=== PATIENT | female | born 1950 | race Caucasian/White ===

== ENCOUNTER 2018-01-12 20:14 | Emergency (ER) | payer OTHER ==
[~2018-01-12] VITALS: Ht 162.6 cm; Wt 92.4 kg
[2018-01-12 20:15] VITALS: TEMP 36.6; Ht 162.6 cm; Wt 92.4 kg
[2018-01-12] MEDS ORDERED: SODIUM CHLORIDE 0.9% 1000ML 1,000 ML IV STA ×2 (20:26)
[2018-01-12] MEDS ORDERED: ONDANSETRON INJ 2 MG/ML 2 ML VIAL IV STA (20:26)
--- NOTE | 2018-01-12 21:12 | EMERGENCY ROOM VISIT NOTE ---
History Report prepared by Bret: Kyara Jack Under the Supervision of: Dr. Yasir Del Angel D.O. First contact with patient: 20:17 Chief Complaint: SYNCOPE Stated Complaint: Syncope, dehydrated History of Present Illness The patient is a 67 year old female who presents to the Emergency Room with complaints of an episode of syncope occurring prior to arrival. The patient states that she was at the [employer] and sat down to listen to music. She states that at that time she noticed she felt "weird" and sorta dizzy. She states that everything looked blurry so she put her glasses on. She states that she started feeling nauseous. She states that at that time she told her that she felt like she was going to pass out. She states that the next thing she knew she woke up soaked in sweat and her was telling her she had passed out. Per nursing staff, the patient's stated that she was out for roughly 10 seconds. She notes that she tends to be reactive to heat. The patient complains of feeling weak. The patient denies chest pain, shortness of breath, vomiting, cough, runny nose, recent travel, recent surgeries, this ever happening before, a history of CAD, and a history of blood clots. Source of History: patient, nursing staff Onset: prior to arrival Quality: other (syncope) Timing: other (episode) Modifying Factors (Worsening): other (heat) Associated Symptoms: + diaphoresis, + nausea, + weakness, No cough, No chest pain, No SOB, No vomiting Note: The patient complains of dizziness and blurry vision. The patient denies runny nose, recent travel, recent surgeries, and this ever happening before. Review of Systems See HPI for pertinent positives & negatives. A total of 10 systems reviewed and were otherwise negative. Past Medical & Surgical Medical Problems: (1) Diabetes (2) HTN (hypertension) (3) Hyperlipidemia Family History Patient reports no known family medical history. Social History Smoking Status: Never Smoker Alcohol Use: none Marital Status: Housing Status: lives with significant other Occupation Status: retired Current/Historical Medications Scheduled Amlodipine (Norvasc), 5 MG PO DAILY Atorvastatin (Lipitor), 20 MG PO QPM Calcium Carbonate-Vitamin D W/ (Caltrate 600 Plus), 1 TAB PO BID Glipizide (Glucotrol), 10 MG PO BID Hctz/Losartan (Hyzaar 25MG/100MG), 1 TAB PO DAILY Metformin Hcl (Glucophage), 1,000 MG PO BID Metoprolol Succ (Toprol Xl) (Toprol-Xl), 50 MG PO DAILY Omeprazole (Prilosec), 20 MG PO DAILY Sitagliptin Phosphate (Januvia), 100 MG PO DAILY Scheduled PRN Baclofen (Lioresal), 10 MG PO TID PRN for Muscle Spasms Naproxen (Naprosyn), 500 MG PO BID PRN for Pain Allergies Uncoded Allergies: TRULICITY (Adverse Reaction, Severe, GI SYMPTOMS, 01/12/18) Physical Exam Vital Signs Date Time Temp Pulse Resp B/P (MAP) Pulse Ox O2 Delivery O2 Flow Rate FiO2 01/12/18 22:31 72 19 138/60 97 Room Air 01/12/18 22:01 72 17 155/70 97 Room Air 01/12/18 21:31 73 18 134/75 97 Room Air 01/12/18 21:02 79 20 139/59 98 Room Air 01/12/18 20:44 70 18 155/62 97 Room Air 68 150/58 78 154/64 01/12/18 20:31 68 19 122/61 99 Room Air 01/12/18 20:15 36.6 74 22 177/59 100 Room Air 01/12/18 20:15 Room Air Physical Exam GENERAL: Sitting up in bed, alert, well appearing, well nourished, no distress, non-toxic EYE EXAM: normal conjunctiva. OROPHARYNX: no exudate, no erythema, lips, buccal mucosa, and tongue normal and mucous membranes are moist NECK: supple, no nuchal rigidity, no adenopathy, non-tender LUNGS: Clear to auscultation. Normal chest wall mechanics HEART: no murmurs, S1 normal and S2 normal ABDOMEN: abdomen soft, non-tender, normo-active bowel sounds, no masses, no rebound or guarding. BACK: Back is symmetrical on inspection and there is no deformity, no midline tenderness, no CVA tenderness. SKIN: no rashes and no bruising UPPER EXTREMITIES: upper extremities are grossly normal. LOWER EXTREMITIES: No pitting edema. NEURO EXAM: Normal sensorium, cranial nerves II-XII intact, normal speech, no weakness of arms, no weakness of legs. No drift. Finger to nose intact. Gross sensation intact. Medical Decision & Procedures ER Provider Diagnostic Interpretation: Radiology results as stated below per my review and the radiologist's interpretation: CHEST ONE VIEW PORTABLE CLINICAL HISTORY: 67 years-old Female presenting with EVALUATE ALTERED MENTAL STATUS/WEAKNESS. TECHNIQUE: Portable upright AP view of the chest was obtained. COMPARISON: None. FINDINGS: Atherosclerosis of the aortic arch. Cardiac silhouette normal in size. No focal opacity. No large effusion or pneumothorax. Degenerative changes of the thoracic spine. Upper abdomen normal. IMPRESSION: 1. No acute cardiopulmonary disease. Electronically signed by: Siva Shah M.D. 01/12/2018 9:15 PM Dictated Date/Time: 01/12/2018 9:14 PM Laboratory Results 01/12/18 21:15 Red Blood Count 4.32, Mean Corpuscular Volume 81.9, Mean Corpuscular Hemoglobin 26.2, Mean Corpuscular Hemoglobin Concent 31.9, Mean Platelet Volume 11.2, Neutrophils (%) (Auto) 59.5, Lymphocytes (%) (Auto) 27.2, Monocytes (%) (Auto) 11.3, Eosinophils (%) (Auto) 1.3, Basophils (%) (Auto) 0.4, Neutrophils # (Auto ) 4.42, Lymphocytes # (Auto) 2.02, Monocytes # (Auto) 0.84, Eosinophils # (Auto ) 0.10, Basophils # (Auto) 0.03 01/12/18 20:39 Test 01/12/18 20:38 01/12/18 20:39 01/12/18 21:15 01/12/18 22:00 Bedside Glucose 200 mg/dl (70-90) Anion Gap 10.0 mmol/L (3-11) Est Creatinine Clear Calc Drug Dose 57.3 ml/min Estimated GFR () 63.6 Estimated GFR (Non- 54.9 BUN/Creatinine Ratio 18.7 (10-20) Calcium Level 9.0 mg/dl (8.5-10.1) Magnesium Level 1.4 mg/dl (1.8-2.4) Total Bilirubin 0.4 mg/dl (0.2-1) Direct Bilirubin 0.1 mg/dl (0-0.2) Aspartate Amino Transf (AST/SGOT) 21 U/L (15-37) Alanine Aminotransferase (ALT/SGPT) 30 U/L (12-78) Alkaline Phosphatase 58 U/L (45-117) Troponin I < 0.015 ng/ml (0-0.045) Total Protein 7.0 gm/dl (6.4-8.2) Albumin 3.6 gm/dl (3.4-5.0) Thyroid Stimulating Hormone (TSH) 3.820 uIu/ml (0.300-4.500) White Blood Count 7.43 K/uL (4.8-10.8) Red Blood Count 4.32 M/uL (4.2-5.4) Hemoglobin 11.3 g/dL (12.0-16.0) Hematocrit 35.4 % (37-47) Mean Corpuscular Volume 81.9 fL (80-100) Mean Corpuscular Hemoglobin 26.2 pg (25-34) Mean Corpuscular Hemoglobin Concent 31.9 g/dl (32-36) Platelet Count 156 K/uL (130-400) Mean Platelet Volume 11.2 fL (7.4-10.4) Neutrophils (%) (Auto) 59.5 % Lymphocytes (%) (Auto) 27.2 % Monocytes (%) (Auto) 11.3 % Eosinophils (%) (Auto) 1.3 % Basophils (%) (Auto) 0.4 % Neutrophils # (Auto) 4.42 K/uL (1.4-6.5) Lymphocytes # (Auto) 2.02 K/uL (1.2-3.4) Monocytes # (Auto) 0.84 K/uL (0.11-0.59) Eosinophils # (Auto) 0.10 K/uL (0-0.5) Basophils # (Auto) 0.03 K/uL (0-0.2) RDW Standard Deviation 42.4 fL (36.4-46.3) RDW Coefficient of Variation 14.0 % (11.5-14.5) Immature Granulocyte % (Auto) 0.3 % Immature Granulocyte # (Auto) 0.02 K/uL (0.00-0.02) Prothrombin Time 10.7 SECONDS (9.0-12.0) Prothromb Time International Ratio 1.0 (0.9-1.1) Activated Partial Thromboplast Time 21.2 SECONDS (21.0-31.0) Partial Thromboplastin Ratio 0.8 Urine Color YELLOW Urine Appearance CLEAR (CLEAR) Urine pH 5.0 (4.5-7.5) Urine Specific Smoot 1.022 (1.000-1.030) Urine Protein NEG (NEG) Urine Glucose (UA) NEG (NEG) Urine Ketones NEG (NEG) Urine Occult Blood NEG (NEG) Urine Nitrite NEG (NEG) Urine Bilirubin NEG (NEG) Urine Urobilinogen NEG (NEG) Urine Leukocyte Esterase MODERATE (NEG) Urine WBC (Auto) 10-30 /hpf (0-5) Urine RBC (Auto) 0-4 /hpf (0-4) Urine Hyaline Casts (Auto) 10-30 /lpf (0-5) Urine Epithelial Cells (Auto) 20-30 /lpf (0-5) Urine Bacteria (Auto) NEG (NEG) Laboratory results per my review. Medications Administered Medications (Trade) Dose Ordered Sig/Mami Route Start Time Stop Time Status Last Admin Dose Admin Sodium Chloride 1,000 ml @ 999 mls/hr Q1H1M STAT IV 01/12/18 20:26 01/12/18 21:26 DC 01/12/18 20:44 999 MLS/HR Sodium Chloride 1,000 ml @ 999 mls/hr Q1H1M STAT IV 01/12/18 20:26 01/12/18 21:26 DC 01/12/18 20:44 999 MLS/HR ECG Per My Interpretation Indication: syncope Rate (beats per minute): 66 Rhythm: sinus rhythm Findings: other (normal axis, ST changes in hilateral leads) Comparison ECG Date: 06/06/2012 Change: no significant change ED Course ED COURSE: Vital signs were reviewed and showed that they were normal. The patients medical record was reviewed The above diagnostic studies were performed and reviewed. ED treatments and interventions as stated above. 2020: The patient was evaluated in room A2. A complete history and physical examination was performed. 2025: Ordered NSS 1000 ml @ 999 mls/hr IV, Zofran Inj 4 mg IV, NSS 1000 ml @ 999 mls/hr IV. 2223: Upon reevaluation, the patient is feeling back to normal. I discussed my findings with the patient and she understands and agrees with the treatment plan. Based on the patients age, coexisting illnesses, exam and lab findings the decision to treat as an outpatient was made. The patient remained stable while under my care. The patient appeared well at the time of discharge. Medical Decision Differential diagnosis includes etiologies such as vasovagal event, infection, hypoglycemia, electrolyte abnormalities, cardiac sources, intracerebral event, toxicologic, neurologic, as well as others were entertained. Patient is a 67-year-old female who presents the ER where [place] started become very nauseous and felt sick to her stomach. Patient began to go blurry. She sat down on a bench and family note that she passed out for short period of time. Does have a history of diabetes, hypertension and hyperlipidemia. She notes that she feels significantly better at this time. CBC along with BMP shows mild hypokalemia. Magnesium was slightly low at 1.4. LFTs and bilirubin along with troponin was negative. TSH normal. UA was contaminated. Chest x-ray was unremarkable. EKG nondiagnostic. After fluids patient felt significantly better. I do believe that this is most likely vasovagal in nature has she became very nauseous and almost vomited prior to passing out. Patient has no other complaints at this time. She is neurologically intact. She is updated bedside and discharged to follow-up with PCP. No chest pain or shortness of breath. Discussed with Pt concerning signs and symptoms to watch out for. Pt was instructed to follow up with their PCP and discussed with the patient their option to return to the ED at anytime for persistent or worsening symptoms. The appropriate anticipatory guidance and out-patient management, including indications for return to the emergency department, were explained at length to the patient and understood. Medication Reconcilliation Current Medication List: was personally reviewed by me Blood Pressure Screening Patient's blood pressure: Normal blood pressure Blood pressure disposition: Did not require urgent referral Impression Primary Impression: Syncope Additional Impression: Hypokalemia Scribe Attestation The scribe's documentation has been prepared under my direction and personally reviewed by me in its entirety. I confirm that the note above accurately reflects all work, treatment, procedures, and medical decision making performed by me. Departure Information Dispostion Home / Self-Care Forms HOME CARE DOCUMENTATION FORM, IMPORTANT VISIT INFORMATION Patient Instructions My [facility] Additional Instructions Please follow up with your primary care doctor with in the next 24 hours. Any worsening of your symptoms, please return to the ED immediately. This includes any fevers greater than 100.4, worsening pain, chest pain, shortness breath, persistent nausea, vomiting, unable to eat or drink, passing out/syncope or any other concerning signs or symptoms from your standpoint. Please do not drive for the remainder the day. Problem Qualifiers Primary Impression: Syncope Syncope type: unspecified Qualified Codes: R55 - Syncope and collapse
--- NOTE | 2018-01-12 21:16 | DIAGNOSTIC IMAGING REPORT ---
CHEST ONE VIEW PORTABLE CLINICAL HISTORY: 67 years-old Female presenting with EVALUATE ALTERED MENTAL STATUS/WEAKNESS. TECHNIQUE: Portable upright AP view of the chest was obtained. COMPARISON: None. FINDINGS: Atherosclerosis of the aortic arch. Cardiac silhouette normal in size. No focal opacity. No large effusion or pneumothorax. Degenerative changes of the thoracic spine. Upper abdomen normal. IMPRESSION: 1. No acute cardiopulmonary disease. Electronically signed by: Siva Shah M.D. 01/12/2018 9:15 PM Dictated Date/Time: 01/12/2018 9:14 PM
[2018-01-12 21:19] LABS: ALBUMIN 3.6 gm/dl (3.4-5.0); ALKALINE PHOSPHATASE 58 U/L (45-117); ALT/SGPT 30 U/L (12-78); AST/SGOT 21 U/L (15-37); BLOOD UREA NITROGEN 20 mg/dl (7-18); CARBON DIOXIDE 26 mmol/L (21-32); CREATININE 1.05 mg/dl (0.60-1.20); GLUCOSE 214 mg/dl (70-99); POTASSIUM 3.4 mmol/L (3.5-5.1); SODIUM 142 mmol/L (136-145)
[2018-01-12] MEDS ORDERED: NAPR-22 PO (21:23)
[2018-01-12] MEDS ORDERED: AMLO5TAB3 PO (21:23)
[2018-01-12] MEDS ORDERED: HYZ/10015 PO (21:23)
[2018-01-12] MEDS ORDERED: METO50TA8 PO (21:23)
[2018-01-12] MEDS ORDERED: METF-384 PO (21:23)
[2018-01-12] MEDS ORDERED: ATOR-22 PO (21:23)
[2018-01-12] MEDS ORDERED: GLIP10TA9 PO (21:23)
[2018-01-12] MEDS ORDERED: CALCTAB7 PO (21:23)
[2018-01-12] MEDS ORDERED: BACL10TA PO (21:23)
[2018-01-12] MEDS ORDERED: SITA100T3 PO (21:23)
[2018-01-12] MEDS ORDERED: PRLSR20 PO (21:23)
[2018-01-12 21:27] LABS: BASO % 0.4 %; BASO ABS # 0.03 K/uL (0-0.2); EOS % 1.3 %; HEMATOCRIT 35.4 % (37-47); HEMOGLOBIN 11.3 g/dL (12.0-16.0); IG# 0.02 K/uL (0.00-0.02); LYMPH % 27.2 %; LYMPH ABS # 2.02 K/uL (1.2-3.4); MEAN CELL VOLUME 81.9 fL (80-100); MEAN CORPUSCULAR HEMOGLOBIN 26.2 pg (25-34); MEAN CORPUSCULAR HGB CONC 31.9 g/dl (32-36); MEAN PLATELET VOLUME 11.2 fL (7.4-10.4); MONO % 11.3 %; MONO ABS # 0.84 K/uL (0.11-0.59); NEUT % 59.5 %; NEUT ABS # 4.42 K/uL (1.4-6.5); PLATELET COUNT 156 K/uL (130-400); RED CELL DISTRIBUTION WIDTH SD 42.4 fL (36.4-46.3); WHITE BLOOD COUNT 7.43 K/uL (4.8-10.8)
[2018-01-12 21:38] LABS: PTT PATIENT 21.2 SECONDS (21.0-31.0)
[2018-01-12 22:31] VITALS: BP 138/60; PULSE 72; O2SAT 97
== END 2018-01-12 22:40 | disposition home or self-care (01) ==
LOC: EDBD 20:14 → C.EDA 20:16
DX: R55 Syncope and collapse (principal); E87.6 Hypokalemia; E11.9 Type 2 diabetes mellitus without complications; I10 Essential (primary) hypertension; E78.5 Hyperlipidemia, unspecified; Z79.84 Long term (current) use of oral hypoglycemic drugs; Z79.899 Other long term (current) drug therapy; Z88.8 Allergy status to other drugs, medicaments and biological substances